=== PATIENT | female | born 1965 | race Hispanic/Latino ===

== ENCOUNTER 2017-08-17 13:47 | Outpatient (CLI) | payer BC, OTHER | END 2017-08-17 13:48 | disposition home or self-care (01) | LOC: BICMAMMO 13:47 | PROVIDERS: ATTEND Family Medicine | DX: N64.4 Mastodynia (principal); Z80.3 Family history of malignant neoplasm of breast | CPT/HCPCS: 77066; G0279 ==

== ENCOUNTER 2017-08-17 14:52 | Outpatient (CLI) | payer BC | END 2017-08-17 14:53 | disposition home or self-care (01) | LOC: BICRAD 14:52 | PROVIDERS: ATTEND Family Medicine | DX: M54.5 Low back pain (principal); M47.896 Other spondylosis, lumbar region; M43.16 Spondylolisthesis, lumbar region | CPT/HCPCS: 72100 ==

== ENCOUNTER 2018-07-11 09:37 | Emergency (ER) | payer BC ==
--- NOTE | 2018-07-11 10:36 | RAD ---
XR Chest Pa Lat STANDARD HISTORY: Dyspnea COMPARISON: 02/16/2017 FINDINGS: The heart size is normal. The lungs are well expanded without focal areas of consolidation, pneumothorax or pleural effusions. There are mild degenerative changes in the spine. IMPRESSION: No radiographic evidence of acute cardiopulmonary process.
[2018-07-11 12:33] LABS: #Basophils 0.1 thou/uL (0.0-0.2); #Eosinphils 0.4 thou/uL (0.0-0.7); #Lymphocytes 3.1 thou/uL (1.20-3.40); #Monocytes 0.7 thou/uL (0.11-0.59); #Neutrophils 6.2 thou/uL (1.40-6.50); %Basophils 0.7 % (0.0-1.0); %Eosinophils 3.9 % (0.0-10.0); %Lymphocytes 29.7 % (21.0-51.0); %Monocytes 6.7 % (0.0-10.0); %Neutrophils 58.9 % (42.0-75.0); Hemoglobin 13.2 g/dL (12.0-16.0); Mean Corpuscular HGB CONC 32.5 g/dL (32.0-36.0); Mean Corpuscular Hemoglobin 31.7 pg (27.0-31.0); Mean Corpuscular Volume 97.3 fL (78.0-98.0); Mean Platelet Volume 8.1 fL (7.4-10.4); Platelet Count 259 thou/uL (130-400); RBC Distribution Width 13.2 % (11.5-14.5); Red Blood Cell (RBC) Count 4.16 mill/uL (4.20-5.40); White Blood Cell (WBC) Count 10.5 thou/uL (4.8-10.8)
[2018-07-11] MEDS ORDERED: Albuterol Sulfate 2.5 mg/0.5 ml Neb ONE (12:35)
[2018-07-11 12:53] LABS: ALT (SGPT) 54 U/L (8-55); AST (SGOT) 65 U/L (5-34); Albumin 3.7 g/dL (3.5-5.0); Alkaline Phosphatase 124 U/L (40-150); Anion Gap 10 mmol/L (10-20); BUN (Urea Nitrogen) 7 mg/dL (9.8-20.1); Bilirubin, Total 1.3 mg/dL (0.2-1.2); Calc. Creatinine Clearance 0 mL/min (70-130); Calcium 9.3 mg/dL (7.8-10.44); Carbon Dioxide 31 mmol/L (22-29); Chloride 105 mmol/L (98-107); Estimated GFR-MDRD 81; Globulin 2.8 g/dL (2.4-3.5); Glucose 119 mg/dL (70-105); Potassium 4.2 mmol/L (3.5-5.1); Protein, Total 6.5 g/dL (6.0-8.3); Sodium 142 mmol/L (136-145)
[2018-07-11 15:38] LABS: Troponin I Less than 0.010 ng/mL (< 0.028)
== END 2018-07-11 16:28 | disposition home or self-care (01) ==
LOC: ERS 09:37
DX: J45.909 Unspecified asthma, uncomplicated (principal); F43.9 Reaction to severe stress, unspecified; F41.9 Anxiety disorder, unspecified; Z79.899 Other long term (current) drug therapy
CPT/HCPCS: 36415; 71046; 80053; 83880; 84484; 85025; 85379; 93005; 94640; J7611; J7620

== ENCOUNTER 2018-07-18 19:00 | Emergency (ER) | payer BC ==
[2018-07-18 21:11] LABS: #Basophils 0.2 thou/uL (0.0-0.2); #Eosinphils 0.2 thou/uL (0.0-0.7); #Lymphocytes 5.6 thou/uL (1.20-3.40); #Monocytes 1.2 thou/uL (0.11-0.59); #Neutrophils 6.8 thou/uL (1.40-6.50); %Basophils 1.2 % (0.0-1.0); %Eosinophils 1.7 % (0.0-10.0); %Lymphocytes 40.2 % (21.0-51.0); %Monocytes 8.6 % (0.0-10.0); %Neutrophils 48.3 % (42.0-75.0); Hemoglobin 12.7 g/dL (12.0-16.0); Mean Corpuscular HGB CONC 31.7 g/dL (32.0-36.0); Mean Corpuscular Hemoglobin 31.2 pg (27.0-31.0); Mean Corpuscular Volume 98.1 fL (78.0-98.0); Mean Platelet Volume 7.9 fL (7.4-10.4); Platelet Count 284 thou/uL (130-400); RBC Distribution Width 13.4 % (11.5-14.5); Red Blood Cell (RBC) Count 4.08 mill/uL (4.20-5.40)
[2018-07-18 21:31] LABS: ALT (SGPT) 63 U/L (8-55); AST (SGOT) 100 U/L (5-34); Albumin 3.9 g/dL (3.5-5.0); Alkaline Phosphatase 131 U/L (40-150); Anion Gap 12 mmol/L (10-20); BUN (Urea Nitrogen) 11 mg/dL (9.8-20.1); Bilirubin, Total 0.8 mg/dL (0.2-1.2); Calc. Creatinine Clearance 0 mL/min (70-130); Calcium 8.9 mg/dL (7.8-10.44); Carbon Dioxide 29 mmol/L (22-29); Chloride 104 mmol/L (98-107); Estimated GFR-MDRD 75; Globulin 3.2 g/dL (2.4-3.5); Glucose 104 mg/dL (70-105); Lipase 16 U/L (8-78); Magnesium 2.1 mg/dL (1.6-2.6); Potassium 3.8 mmol/L (3.5-5.1); Protein, Total 7.1 g/dL (6.0-8.3); Sodium 141 mmol/L (136-145)
== END 2018-07-18 21:59 | disposition home or self-care (01) ==
LOC: ERS 19:00
DX: R44.1 Visual hallucinations (principal); G47.00 Insomnia, unspecified; R06.02 Shortness of breath; R10.13 Epigastric pain; T50.905A Adverse effect of unspecified drugs, medicaments and biological substances, initial encounter; J45.909 Unspecified asthma, uncomplicated; F41.9 Anxiety disorder, unspecified; Z87.891 Personal history of nicotine dependence; Z79.899 Other long term (current) drug therapy; Z79.51 Long term (current) use of inhaled steroids
CPT/HCPCS: 36415; 80053; 83690; 83735; 85025; 93005

== ENCOUNTER 2019-02-24 19:14 | Observation (INO) | payer BC ==
[2019-02-24] MEDS ORDERED: Ondansetron PF 4 MG/2 ML Vial ONE (19:48)
[2019-02-24] MEDS ORDERED: Mag-Al 1200 mg/1200 mg/30 ML UDCUP ONE (19:56)
[2019-02-24] MEDS ORDERED: Lidocaine Viscous Sol 2% 15 ml UD Cup ONE (19:56)
[2019-02-24 20:00] LABS: #Lymphocytes 1.3 thou/uL (1.20-3.40); #Monocytes 0.3 thou/uL (0.11-0.59); #Neutrophils 7.1 thou/uL (1.40-6.50); %Basophils 0.5 % (0.0-1.0); %Eosinophils 0.3 % (0.0-10.0); %Lymphocytes 14.7 % (21.0-51.0); %Monocytes 3.4 % (0.0-10.0); Hemoglobin 16.1 g/dL (12.0-16.0); Mean Corpuscular HGB CONC 32.8 g/dL (32.0-36.0); Mean Corpuscular Hemoglobin 31.4 pg (27.0-31.0); Mean Corpuscular Volume 95.5 fL (78.0-98.0); Mean Platelet Volume 8.9 fL (7.4-10.4); Platelet Count 234 thou/uL (130-400); RBC Distribution Width 13.9 % (11.5-14.5); Red Blood Cell (RBC) Count 5.14 mill/uL (4.20-5.40); White Blood Cell (WBC) Count 8.8 thou/uL (4.8-10.8)
--- NOTE | 2019-02-24 20:16 | RAD ---
Portable frontal chest radiograph: 02/24/2019 COMPARISON: 07/11/2018 HISTORY: Nausea, vomiting, and diarrhea, chest pain FINDINGS: Lungs are clear. Heart and mediastinal contours appear within normal limits. IMPRESSION: No acute findings.
[2019-02-24 20:26] LABS: ALT (SGPT) 54 U/L (8-55); AST (SGOT) 68 U/L (5-34); Albumin 4.1 g/dL (3.5-5.0); Alkaline Phosphatase 134 U/L (40-110); Anion Gap 13 mmol/L (10-20); BUN (Urea Nitrogen) 10 mg/dL (9.8-20.1); Bilirubin, Total 1.8 mg/dL (0.2-1.2); Calc. Creatinine Clearance 0 mL/min (70-130); Calcium 9.4 mg/dL (7.8-10.44); Carbon Dioxide 26 mmol/L (22-29); Chloride 101 mmol/L (98-107); Estimated GFR-MDRD 69; Globulin 3.6 g/dL (2.4-3.5); Glucose 133 mg/dL (70-105); Lipase 9 U/L (8-78); Protein, Total 7.7 g/dL (6.0-8.3); Sodium 136 mmol/L (136-145)
[2019-02-24 20:48] LABS: CKMB 0.8 ng/mL (0-6.6)
[2019-02-24] MEDS ORDERED: Acetaminophen 500 MG TAB ONE (21:08)
[2019-02-24] MEDS ORDERED: Aspirin Chewable 81 MG TAB ONE (21:11)
[2019-02-24 22:49] LABS: Bacteria/HPF 2+ HPF (None Seen); Bilirubin Negative (Negative); Blood, Urine 1+ (Negative); Clarity Clear (Clear); Glucose, Urine (Dipstick) Normal (Negative); Leukocyte Negative Leu/uL (Negative); Mucous/LPF Rare LPF (<2+); Nitrite Negative (Negative); Protein, Urine (Dipstick) Negative (Neg-Trace); Squamous Epithelial 0-3 HPF (0-3); Urobilinogen Normal mg/dL (Less than 2)
[2019-02-25] MEDS ORDERED: Acetaminophen 325 MG TAB PO PRN (00:28)
[2019-02-25] MEDS ORDERED: Ondansetron PF 4 MG/2 ML Vial IVP PRN (00:28)
[2019-02-25] MEDS ORDERED: Guaifenesin DM 100-10/5 ML UDCUP PO PRN (00:28)
[2019-02-25] MEDS ORDERED: Acetaminophen/Codeine 30-300mg Tablet PO PRN (00:29)
--- NOTE | 2019-02-25 01:04 | HP ---
REASON FOR ADMISSION: Severe dehydration; gastroenteritis, likely viral; and chest pain. HISTORY OF PRESENTING ILLNESS: Patient gives history of developing nausea, vomiting, and diarrhea all of sudden from this morning. She ate spaghetti with ragu sauce and ice cream last night and yesterday afternoon she ate a cheeseburger from [email or web address] with fries. She has not been able to keep anything down from morning today. She has vomited nearly 10 times and has had 10 episodes of loose watery stool. No blood in it. Patient felt feverish. On arrival here, had a temperature of 101.3 degrees here. Patient states she works in a [employer] center and one of her coworkers had diarrhea yesterday. The patient developed chest pain around 3 p.m. in the retrosternal area, which lasted for 10 minutes with no radiation. She has had a PET stress test done on December 16, which was negative. No complaints of shortness of breath. PAST MEDICAL AND SURGICAL HISTORY: Obesity; history of asthma, which has been stable with no flare-ups; osteoarthritis; chronic pain; cholecystectomy; tubal ligation; and anxiety disorder. CURRENT MEDICATION: Tylenol No. 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 ALLERGIES: NO KNOWN DRUG ALLERGIES. PERSONAL HISTORY: Quit smoking 4 years ago. Does not abuse alcohol or drugs. FAMILY HISTORY: Mother at the age of 71. She had history of diabetes and hypertension. Father at the age of 72. He of prostate cancer and its complications. CODE STATUS: Full. Power of ip attorney is her daughter, Ms. Horvath. REVIEW OF SYSTEMS: CONSTITUTIONAL: Negative for weight loss or gain, ability to conduct usual activities. SKIN: Negative for rash, itching. EYES: Negative for double vision, pain. ENT/MOUTH: Negative for nose bleeding, neck stiffness, pain, tenderness. CARDIOVASCULAR: Negative for palpitations, dyspnea on exertion, orthopnea. RESPIRATORY: Negative for shortness of breath, wheezing, cough, hemoptysis, fever or night sweats. GASTROINTESTINAL: Negative for poor appetite, abdominal pain, heartburn, nausea , vomiting, constipation, or diarrhea. GENITOURINARY: Negative for urgency, frequency, dysuria, nocturia. MUSCULOSKELETAL: Negative for pain, swelling. NEUROLOGIC/PSYCHIATRIC: Negative for anxiety, depression. ALLERGY/IMMUNOLOGIC: Negative for skin rash, bleeding tendency. PHYSICAL EXAMINATION: GENERAL: Patient is a 53-year-old female, who is currently not in any acute distress. VITAL SIGNS: Blood pressure 136/90, pulse 110 per minute, respiratory rate 18 per minute, temperature was 101.3 degrees Fahrenheit, and saturating 96% on room air. NECK: Supple. No elevated JVD. HEENT: Eyes; extraocular muscles intact. Pupils reacting to light. Oral cavity, mucous membranes are dry. No exudates or congestion. CARDIOVASCULAR: S1, S2 heard. Regular rhythm. RESPIRATORY: Air entry 2+ bilateral. No rales. There is rhonchi plus. ABDOMEN: Soft. No tenderness or rigidity. Bowel sounds are heard. EXTREMITIES : Mild peripheral edema. No calf tenderness. VASCULAR: Peripheral pulses are 2+, bilateral. No ischemic ulcerations or gangrene. CENTRAL NERVOUS SYSTEM: No gross focal deficits noted. Patient is alert, awake , and oriented well. PSYCHIATRIC: Patient's mood is euthymic. No hallucinations or delusions. LABORATORY DATA: Influenza A and B antigens are negative. Chest x-ray done shows no acute findings. H and H 16 and 49, platelet count 234, white count of 8.8, MCV is 95 with 81% neutrophils. Electrolytes stable. BUN 10, creatinine 0.8, serum glucose 133, total bilirubin 1.8, AST 68, ALT 54, and alk phos 134. Troponin I 0.02, second set is normal. Albumin is 4.1. Lipase is 9. EKG done, shows sinus tach at 108 beats per minute. CLINICAL IMPRESSION AND PLAN: Patient will be under observation on the telemetry for severe gastroenteritis, likely viral, but patient has had a fever of 101 degrees with nearly 10 episodes of vomiting and diarrhea. She is still having diarrhea as we speak. We will obtain stool for cultures including Clostridium difficile. We will empirically place her on Cipro and Flagyl for now. Gentle hydration with normal saline at 100 mL/hour. The patient has had a recent PET scan stress test done in November, which was negative. We will also place her on albuterol nebulizer q.8 hours and aspirin 81 mg p.o. daily. No further workup for her heart will be done. We will obtain ultrasound of right upper quadrant to see if she has any evidence of choledocholithiasis. Patient has had prior cholecystectomy. She is clinically not tender in the right upper quadrant. We will keep her on clear liquid diet. If needed, Zofran and Phenergan will be given. Job ID: [id number] [facility]
[2019-02-25 01:23] LABS: HBSAg Index 0.16 S/CO (0-0.99); Hep B Surf Ag Non-Reactive S/CO (NonReactive)
[2019-02-25 01:24] LABS: Hep A IgM AB Non-Reactive (NonReactive)
[2019-02-25 01:25] LABS: HBCM Index 0.15 S/CO (0-0.79); Hepatitis B Core IgM Abs Non-Reactive (NonReactive)
[2019-02-25 01:26] LABS: Hep C IgG Ab Reflex HepC Qnt (NonReactive); Hep C Index 4.25 S/CO (0-0.79)
[2019-02-25 03:10] LABS: #Basophils 0.2 thou/uL (0.0-0.2); #Lymphocytes 2.6 thou/uL (1.20-3.40); #Monocytes 0.7 thou/uL (0.11-0.59); #Neutrophils 5.8 thou/uL (1.40-6.50); %Basophils 1.8 % (0.0-1.0); %Eosinophils 0.3 % (0.0-10.0); %Lymphocytes 27.5 % (21.0-51.0); %Monocytes 7.8 % (0.0-10.0); %Neutrophils 62.6 % (42.0-75.0); Hemoglobin 13.5 g/dL (12.0-16.0); Mean Corpuscular Hemoglobin 31.4 pg (27.0-31.0); Mean Corpuscular Volume 95.2 fL (78.0-98.0); Mean Platelet Volume 8.3 fL (7.4-10.4); Platelet Count 214 thou/uL (130-400); White Blood Cell (WBC) Count 9.3 thou/uL (4.8-10.8)
[2019-02-25 03:42] LABS: ALT (SGPT) 39 U/L (8-55); AST (SGOT) 48 U/L (5-34); Albumin 3.4 g/dL (3.5-5.0); Alkaline Phosphatase 102 U/L (40-110); Anion Gap 16 mmol/L (10-20); BUN (Urea Nitrogen) 10 mg/dL (9.8-20.1); Bilirubin, Total 1.5 mg/dL (0.2-1.2); Calc. Creatinine Clearance 0 mL/min (70-130); Calcium 8.4 mg/dL (7.8-10.44); Carbon Dioxide 20 mmol/L (22-29); Chloride 108 mmol/L (98-107); Estimated GFR-MDRD 80; Glucose 98 mg/dL (70-105); Potassium 3.7 mmol/L (3.5-5.1); Protein, Total 6.4 g/dL (6.0-8.3); Sodium 140 mmol/L (136-145)
[2019-02-25] MEDS: Sodium Chloride 0.9% 1,000 ML IV SCH ×2 (06:22→08:44)
[2019-02-25 08:31] VITALS: BMI 56.6
[2019-02-25] MEDS: metroNIDAZOLE 500 MG in Premix Bag 1 BAG IVPB SCH ×2 (08:44→15:40)
[2019-02-25] MEDS ORDERED: Enoxaparin Sodium 40 MG/0.4 ML SYRINGE SC SCH (09:00)
[2019-02-25] MEDS ORDERED: Cetirizine HCl 10 MG TAB PO SCH (09:00)
[2019-02-25] MEDS ORDERED: Aspirin Chewable 81 MG TAB PO SCH (09:00)
[2019-02-25] MEDS ORDERED: Loratadine 10 MG TAB PO SCH (09:00)
[2019-02-25] MEDS ORDERED: Famotidine/PF 20 mg/2ml Vial SLOW IVP SCH (09:00)
[2019-02-25] MEDS: Albuterol Sulfate 1.25 MG/3 ML NEB NEB SCH ×2 (10:23→13:43)
--- NOTE | 2019-02-25 12:04 | ULT ---
ULTRASOUND GALLBLADDER UPPER QUADRANT: HISTORY: Evaluate for cholelithiasis, prior cholecystectomy. COMPARISON: None. FINDINGS: Mild diffuse increased hepatic echotexture. Pancreas is poorly seen as well as the aorta and IVC. C ommon bile duct is normal measuring 3 mm. The portal vein is patent with antegrade flow. There is a nodular contour of the liver. No definite mass is appreciated, given the extensive coarsened echotexture. Liver measures 18.7 cm in length. The right kidney measures 10.2 x 4.7 x 6.3 cm without mass, hydronephrosis, or abnormal calcification s. IMPRESSION: 1. No evidence for choledocholithiasis. No intrahepatic or extrahepatic biliary dilatation. 2. Prior cholecystectomy. 3. Abnormal coarsened hepatic echotexture with nodular contour suggesting cirrhosis. POS: HOME
[2019-02-25 15:40] VITALS: TEMP 98.5
[2019-02-25] MEDS ORDERED: Cipro 250 MG TAB PO SCH (19:30)
[2019-02-25] MEDS ORDERED: metroNIDAZOLE 500 MG TAB PO SCH (19:30)
[2019-02-25 20:28] VITALS: BP 127/74
[2019-02-27 13:10] LABS: Hep C PCR-Quant HCV Not Detected IU/mL (.)
== END 2019-02-25 20:39 | disposition home or self-care (01) ==
LOC: ERS 19:14 → ERHOLD 22:39 → 2SW 02-25 08:13
PROVIDERS: ADMIT Internal Medicine; ATTEND Internal Medicine
DX: K52.9 Noninfective gastroenteritis and colitis, unspecified (principal); E86.0 Dehydration; R07.2 Precordial pain; J45.909 Unspecified asthma, uncomplicated; M19.90 Unspecified osteoarthritis, unspecified site; M79.7 Fibromyalgia; G89.29 Other chronic pain; F41.9 Anxiety disorder, unspecified; E66.9 Obesity, unspecified; Z68.43 Body mass index [BMI] 50.0-59.9, adult; Z87.891 Personal history of nicotine dependence
CPT/HCPCS: 36415; 71045; 76705; 80053; 80074; 81003; 81015; 82553; 83690; 84484; 85025; 87040; 87045; 87046; 87086; 87324; 87427; 87449; 87522; 87804; 93005; 94640; 96361; 96365; 96374; 96375; 96376; G0378; J0744; J2405; S0028

== ENCOUNTER 2019-04-26 10:00 | Emergency (ER) | payer BC ==
[2019-04-26] MEDS ORDERED: Ketorolac Tromethamine 30 MG/ML VIAL ONE (10:31)
== END 2019-04-26 10:51 | disposition home or self-care (01) ==
LOC: ERS 10:00
DX: G89.29 Other chronic pain (principal); M54.5 Low back pain; M19.90 Unspecified osteoarthritis, unspecified site; J45.909 Unspecified asthma, uncomplicated; F41.9 Anxiety disorder, unspecified; Z87.891 Personal history of nicotine dependence
CPT/HCPCS: 96372; 99283; J1885

== ENCOUNTER 2019-09-18 12:12 | Emergency (ER) | payer BC ==
[2019-09-18 12:58] LABS: #Basophils 0.1 thou/uL (0.0-0.2); #Eosinphils 0.3 thou/uL (0.0-0.7); #Lymphocytes 4.5 thou/uL (1.20-3.40); #Monocytes 1.2 thou/uL (0.11-0.59); #Neutrophils 6.7 thou/uL (1.40-6.50); %Basophils 0.9 % (0.0-1.0); %Eosinophils 2.2 % (0.0-10.0); %Lymphocytes 35.2 % (21.0-51.0); %Monocytes 9.4 % (0.0-10.0); %Neutrophils 52.3 % (42.0-75.0); Hemoglobin 14.8 g/dL (12.0-16.0); Mean Corpuscular HGB CONC 32.1 g/dL (32.0-36.0); Mean Corpuscular Hemoglobin 31.5 pg (27.0-31.0); Mean Platelet Volume 8.2 fL (7.4-10.4); Platelet Count 247 thou/uL (130-400); RBC Distribution Width 13.4 % (11.5-14.5); White Blood Cell (WBC) Count 12.9 thou/uL (4.8-10.8)
[2019-09-18 13:09] LABS: ALT (SGPT) 43 U/L (8-55); AST (SGOT) 49 U/L (5-34); Albumin 3.8 g/dL (3.5-5.0); Alkaline Phosphatase 137 U/L (40-110); Anion Gap 12 mmol/L (10-20); BUN (Urea Nitrogen) 13 mg/dL (9.8-20.1); Bilirubin, Total 1.1 mg/dL (0.2-1.2); Calc. Creatinine Clearance 0 mL/min (70-130); Calcium 8.8 mg/dL (7.8-10.44); Carbon Dioxide 26 mmol/L (22-29); Chloride 105 mmol/L (98-107); Estimated GFR-MDRD 79; Globulin 3.4 g/dL (2.4-3.5); Glucose 83 mg/dL (70-105); Potassium 4.1 mmol/L (3.5-5.1); Protein, Total 7.2 g/dL (6.0-8.3); Sodium 139 mmol/L (136-145)
[2019-09-18] MEDS ORDERED: Acetaminophen 500 MG TAB ONE (13:32)
[2019-09-18] MEDS ORDERED: Ondansetron PF 4 MG/2 ML Vial ONE (13:32)
--- NOTE | 2019-09-18 13:32 | CT ---
CT BRAIN WITHOUT CONTRAST: HISTORY: Headache, near syncope, nausea and dizziness FINDINGS: No evidence of acute infarct, hemorrhage, midline shift or abnormal extra-axial fluid collections is seen. The ventricular size is appropriate and the basilar cisterns are patent. The bony calvarium is intact. The mastoid air cells are well aerated. There is a tiny amount of fluid in the sphenoid si nuses. IMPRESSION: No CT evidence of acute intracranial process.
== END 2019-09-18 14:21 | disposition home or self-care (01) ==
LOC: ERS 12:12
DX: R42 Dizziness and giddiness (principal); R51 Headache; R79.89 Other specified abnormal findings of blood chemistry; R03.0 Elevated blood-pressure reading, without diagnosis of hypertension; M79.7 Fibromyalgia; J45.909 Unspecified asthma, uncomplicated; M19.90 Unspecified osteoarthritis, unspecified site; F41.9 Anxiety disorder, unspecified; F32.9 Major depressive disorder, single episode, unspecified; Z87.891 Personal history of nicotine dependence; Z79.899 Other long term (current) drug therapy
CPT/HCPCS: 36415; 70450; 80053; 82550; 84484; 85025; 93005; 94760; 96374; J2405

== ENCOUNTER 2019-12-28 15:19 | Outpatient (CLI) | payer BC ==
--- NOTE | 2019-12-28 15:51 | MMO ---
Bilateral MAMMO Bilat Screen [facility]. CLINICAL HISTORY: Patient is 54 years old and is seen for screening. The patient has the following family history of breast cancer: cousin female, malignant (generic). The patient has no personal history of cancer. VIEWS: The views performed were: bilateral craniocaudal; bilateral craniocaudal with tomosynthesis; bilateral mediolateral oblique; and bilateral mediolateral oblique with tomosynthesis. FILMS COMPARED: The present examination has been compared to prior imaging studies performed at [facility] on 01/12/2011, 04/22/2016 and 08/17/2017, and at [facility] on 09/09/2004. This study has been interpreted with the assistance of computer-aided detection. MAMMOGRAM FINDINGS: The breasts are almost entirely fat. There are no suspicious masses, suspicious calcifications, or new areas of architectural distortion. IMPRESSION: THERE IS NO MAMMOGRAPHIC EVIDENCE OF MALIGNANCY. A ROUTINE FOLLOW-UP MAMMOGRAM IN 1 YEAR IS RECOMMENDED. THE RESULTS OF THIS EXAM WERE SENT TO THE PATIENT. ACR BI-RADS Category 1 - Negative MAMMOGRAPHY NOTE: 1. A negative mammogram report should not delay a biopsy if a dominant of clinically suspicious mass is present. 2. Approximately 10% to 15% of breast cancers are not detected by mammography. 3. Adenosis and dense breasts may obscure an underlying neoplasm. Reported by: ROSIE CANDELARIO MD Electonically Signed: [id number]
== END 2019-12-28 15:20 | disposition home or self-care (01) ==
LOC: BICMAMMO 15:19
PROVIDERS: ATTEND Family Medicine
DX: Z12.31 Encounter for screening mammogram for malignant neoplasm of breast (principal); Z80.3 Family history of malignant neoplasm of breast
CPT/HCPCS: 77063; 77067

== ENCOUNTER 2020-02-12 11:35 | Emergency (ER) | payer BC ==
[~2020-02-12 11:35] MED LIST: Iopamidol-370 76% 500 ML 1 ML ONE
[2020-02-12 12:18] LABS: #Basophils 0.1 thou/uL (0.0-0.2); #Eosinphils 0.5 thou/uL (0.0-0.7); #Lymphocytes 4.1 thou/uL (1.20-3.40); #Monocytes 1.1 thou/uL (0.11-0.59); #Neutrophils 5.2 thou/uL (1.40-6.50); %Basophils 1.1 % (0.0-1.0); %Eosinophils 4.9 % (0.0-10.0); %Lymphocytes 36.9 % (21.0-51.0); %Monocytes 9.7 % (0.0-10.0); %Neutrophils 47.4 % (42.0-75.0); Hemoglobin 14.2 g/dL (12.0-16.0); Mean Corpuscular HGB CONC 32.7 g/dL (32.0-36.0); Mean Corpuscular Hemoglobin 31.7 pg (27.0-31.0); Mean Corpuscular Volume 96.8 fL (78.0-98.0); Platelet Count 280 thou/uL (130-400); RBC Distribution Width 12.4 % (11.5-14.5); Red Blood Cell (RBC) Count 4.48 mill/uL (4.20-5.40)
--- NOTE | 2020-02-12 12:26 | RAD ---
XR Chest 1 View Portable History: Pneumonia. Dyspnea Comparison: Radiograph February 24, 2019 Findings: Heart size mildly enlarged along with the pulmonary arteries. No pneumothorax. No effusion. No confluent airspace consolidation. Impression: No acute intrathoracic abnormality. Cardiomegaly and pulmonary hypertension.
[2020-02-12] MEDS ORDERED: Albuterol 200 PUFF (6.7GM INHALER) ONE (12:38)
[2020-02-12 12:44] LABS: ALT (SGPT) 67 U/L (8-55); AST (SGOT) 107 U/L (5-34); Albumin 3.5 g/dL (3.5-5.0); Alkaline Phosphatase 121 U/L (40-110); Anion Gap 12 mmol/L (10-20); BUN (Urea Nitrogen) 8 mg/dL (9.8-20.1); Calc. Creatinine Clearance 0 mL/min (70-130); Calcium 8.7 mg/dL (7.8-10.44); Carbon Dioxide 27 mmol/L (22-29); Chloride 107 mmol/L (98-107); Globulin 2.9 g/dL (2.4-3.5); Glucose 111 mg/dL (70-105); Potassium 4.2 mmol/L (3.5-5.1); Protein, Total 6.4 g/dL (6.0-8.3); Sodium 142 mmol/L (136-145)
--- NOTE | 2020-02-12 14:25 | CT ---
CT arteriogram chest with IV contrast and 3-D imaging HISTORY: Recent COVID pneumonia. Worsening dyspnea. FINDINGS: There is good contrast opacification of the pulmonary arteries and thoracic aorta with bovi ne origin of the great vessels at the aortic arch. No pleural fluid, pneumothorax, or mediastinal adenopathy. Very subtle peripheral patchy interstitial infiltrates are present the posterior aspect of each upper lobe. Mild linear scarring at the left lateral lung base. Within the partially visualized upper abdomen, metallic clips are present in the gallbladder fossa. IMPRESSION : No evidence of pulmonary embolus. Subtle bilateral parenchymal infiltrate/scarring, consistent with mild residual infiltrate from recen t pneumonitis.
--- NOTE | 2020-02-16 14:42 | EKG ---
Test Reason : Blood Pressure : / mmHG Vent. Rate : 068 BPM Atrial Rate : 068 BPM P-R Int : 120 ms QRS Dur : 080 ms QT Int : 376 ms P-R-T Axes : 072 051 047 degrees QTc Int : 399 ms Normal sinus rhythm Normal ECG Confirmed by ABDIRASHID CHAMPAGNE ([id number]), sponge maker SURENDRA LI ([id number] on 02/16/2020 2:41:57 PM Referred By: Confirmed By:ABDIRASHID CHAMPAGNE
== END 2020-02-12 15:46 | disposition home or self-care (01) ==
LOC: ERS 11:35
DX: U07.1 COVID-19 (principal); J12.89 Other viral pneumonia; M79.7 Fibromyalgia; M19.90 Unspecified osteoarthritis, unspecified site; Z87.891 Personal history of nicotine dependence
CPT/HCPCS: 71045; 71275; 80053; 83880; 84484; 85025; 85379; 93005; 94664; Q9967

== ENCOUNTER 2020-03-16 12:21 | Emergency (ER) | payer BC ==
[2020-03-16 12:51] LABS: #Basophils 0.1 thou/uL (0.0-0.2); #Eosinphils 0.7 thou/uL (0.0-0.7); #Lymphocytes 4.7 thou/uL (1.20-3.40); #Monocytes 0.9 thou/uL (0.11-0.59); #Neutrophils 3.7 thou/uL (1.40-6.50); %Basophils 1.3 % (0.0-1.0); %Eosinophils 6.5 % (0.0-10.0); %Lymphocytes 46.6 % (21.0-51.0); %Monocytes 8.7 % (0.0-10.0); %Neutrophils 36.9 % (42.0-75.0); Hemoglobin 14.3 g/dL (12.0-16.0); Mean Corpuscular HGB CONC 32.7 g/dL (32.0-36.0); Mean Corpuscular Hemoglobin 31.6 pg (27.0-31.0); Mean Corpuscular Volume 96.7 fL (78.0-98.0); Mean Platelet Volume 8.4 fL (7.4-10.4); Platelet Count 231 thou/uL (130-400); RBC Distribution Width 13.3 % (11.5-14.5); Red Blood Cell (RBC) Count 4.53 mill/uL (4.20-5.40); White Blood Cell (WBC) Count 10.1 thou/uL (4.8-10.8)
--- NOTE | 2020-03-16 13:07 | RAD ---
EXAM: CHEST ONE VIEW HISTORY: Intermittent chest pain. History of Covid in December. COMPARISON: 02/12/2020 FINDINGS: Cardiac silhouette remains enlarged. Pulmonary vasculature is within normal limits. Minimal linear de nsities are seen in the left midlung zone also seen on prior study which may related to minimal scarring. Lungs are otherwise clear. There is no consolidation or pleural fluid seen. No interval tita nge from prior study. IMPRESSION: Stable chest with evidence of cardiomegaly. No acute cardiopulmonary process.
[2020-03-16 13:13] LABS: ALT (SGPT) 60 U/L (8-55); AST (SGOT) 99 U/L (5-34); Albumin 3.7 g/dL (3.5-5.0); Alkaline Phosphatase 106 U/L (40-110); Anion Gap 14 mmol/L (10-20); BUN (Urea Nitrogen) 9 mg/dL (9.8-20.1); Bilirubin, Total 1.5 mg/dL (0.2-1.2); Calc. Creatinine Clearance 0 mL/min (70-130); Calcium 8.7 mg/dL (7.8-10.44); Carbon Dioxide 27 mmol/L (22-29); Chloride 105 mmol/L (98-107); Globulin 3.4 g/dL (2.4-3.5); Glucose 90 mg/dL (70-105); Potassium 4.3 mmol/L (3.5-5.1); Protein, Total 7.1 g/dL (6.0-8.3); Sodium 142 mmol/L (136-145)
[2020-03-16] MEDS ORDERED: Ketorolac Tromethamine 30 MG/ML VIAL ONE (13:53)
[2020-03-16] MEDS ORDERED: Ondansetron PF 4 MG/2 ML Vial ONE (13:53)
[2020-03-16 15:09] LABS: Troponin I Less than 0.010 ng/mL (< 0.028)
--- NOTE | 2020-04-05 19:11 | EKG ---
Test Reason : EMERGENCY EXAM Blood Pressure : / mmHG Vent. Rate : 081 BPM Atrial Rate : 081 BPM P-R Int : 128 ms QRS Dur : 084 ms QT Int : 370 ms P-R-T Axes : 071 048 039 degrees QTc Int : 429 ms Normal sinus rhythm Normal ECG Confirmed by MARINE TYLER DO ([id number]), proposal editor SURENDRA LI ([id number]) on 04/05/2020 7:11:09 PM Referred By: Confirmed By:MARINE TYLER DO
== END 2020-03-16 15:40 | disposition home or self-care (01) ==
LOC: ERS 12:21
DX: R09.1 Pleurisy (principal); M79.7 Fibromyalgia; M19.90 Unspecified osteoarthritis, unspecified site; J45.909 Unspecified asthma, uncomplicated; Z87.891 Personal history of nicotine dependence
CPT/HCPCS: 36415; 71045; 80053; 83880; 84484; 85025; 93005; 96374; 96375; J1885; J2405

== ENCOUNTER 2020-04-23 14:04 | Emergency (ER) | payer BC ==
--- NOTE | 2020-04-23 14:28 | RAD ---
EXAM: Chest one view: HISTORY: Intermittent chest soreness and pain since having Covid in December, becoming worse COMPARISON: 03/16/2020 FINDINGS: Poor inspiration Heart size: Within normal limits. Lungs: Horizontal linear parenchymal change in the left midlung zone more prominent than on prior hilario dy. No evidence for confluent lobar pneumonia, significant pleural effusion, acute edema, or pneumothorax , or other significant acute process. IMPRESSION: New focal linear area of horizontal density in the left midlung zone, possibly subsegmental atelectas is or mild pneumonitis. Suggest a short-term follow-up for clearing or stability.
[2020-04-23 15:13] LABS: #Basophils 0.1 thou/uL (0.0-0.2); #Eosinphils 0.8 thou/uL (0.0-0.7); #Lymphocytes 3.9 thou/uL (1.20-3.40); #Monocytes 1.1 thou/uL (0.11-0.59); #Neutrophils 3.3 thou/uL (1.40-6.50); %Basophils 1.5 % (0.0-1.0); %Eosinophils 8.2 % (0.0-10.0); %Lymphocytes 42.5 % (21.0-51.0); %Monocytes 11.6 % (0.0-10.0); %Neutrophils 36.1 % (42.0-75.0); Hemoglobin 13.6 g/dL (12.0-16.0); Mean Corpuscular HGB CONC 32.6 g/dL (32.0-36.0); Mean Corpuscular Hemoglobin 31.6 pg (27.0-31.0); Mean Corpuscular Volume 96.8 fL (78.0-98.0); Platelet Count 229 thou/uL (130-400); RBC Distribution Width 13.4 % (11.5-14.5); Red Blood Cell (RBC) Count 4.29 mill/uL (4.20-5.40); White Blood Cell (WBC) Count 9.3 thou/uL (4.8-10.8)
[2020-04-23 15:38] LABS: ALT (SGPT) 43 U/L (8-55); AST (SGOT) 80 U/L (5-34); Albumin 3.5 g/dL (3.5-5.0); Alkaline Phosphatase 103 U/L (40-110); Anion Gap 9 mmol/L (10-20); BUN (Urea Nitrogen) 10 mg/dL (9.8-20.1); Calc. Creatinine Clearance 0 mL/min (70-130); Calcium 8.8 mg/dL (7.8-10.44); Carbon Dioxide 32 mmol/L (22-29); Chloride 104 mmol/L (98-107); Globulin 3.3 g/dL (2.4-3.5); Glucose 91 mg/dL (70-105); Lipase 12 U/L (8-78); Potassium 3.8 mmol/L (3.5-5.1); Protein, Total 6.8 g/dL (6.0-8.3); Sodium 141 mmol/L (136-145)
[2020-04-23] MEDS ORDERED: Ketorolac Tromethamine 30 MG/ML VIAL ONE (15:42)
== END 2020-04-23 17:12 | disposition home or self-care (01) ==
LOC: ERS 14:04
DX: J18.9 Pneumonia, unspecified organism (principal); J45.909 Unspecified asthma, uncomplicated; M79.7 Fibromyalgia; M19.90 Unspecified osteoarthritis, unspecified site; Z87.891 Personal history of nicotine dependence; Z86.16 Personal history of COVID-19; Z79.899 Other long term (current) drug therapy
CPT/HCPCS: 36415; 71045; 80053; 83690; 84484; 85025; 93005; 94760; 96372; J1885

== ENCOUNTER 2020-05-05 09:22 | Outpatient (CLI) | payer BC | END 2020-05-05 09:23 | disposition home or self-care (01) | LOC: BICRAD 09:22 | PROVIDERS: ATTEND Internal Medicine Pulmonary Disease | DX: R06.00 Dyspnea, unspecified (principal) | CPT/HCPCS: 71046 ==

== ENCOUNTER 2020-05-08 10:20 | Emergency (ER) | payer BC ==
[2020-05-08] MEDS ORDERED: HYDROcodone/Acetaminophen 10/325 mg Tablet ONE (13:37)
== END 2020-05-08 14:48 | disposition home or self-care (01) ==
LOC: ERS 10:20
DX: I87.2 Venous insufficiency (chronic) (peripheral) (principal); M79.7 Fibromyalgia; M19.90 Unspecified osteoarthritis, unspecified site; J45.909 Unspecified asthma, uncomplicated; Z87.891 Personal history of nicotine dependence; Z79.899 Other long term (current) drug therapy
CPT/HCPCS: 93005; 93970

== ENCOUNTER 2020-08-25 16:58 | Emergency (ER) | payer BC ==
[2020-08-25 17:42] LABS: #Basophils 0.1 thou/uL (0.0-0.2); #Eosinphils 0.6 thou/uL (0.0-0.7); #Lymphocytes 4.3 thou/uL (1.20-3.40); #Monocytes 0.8 thou/uL (0.11-0.59); #Neutrophils 5.7 thou/uL (1.40-6.50); %Basophils 1.1 % (0.0-1.0); %Eosinophils 5.5 % (0.0-10.0); %Lymphocytes 37.3 % (21.0-51.0); %Neutrophils 49.1 % (42.0-75.0); Hemoglobin 14.4 g/dL (12.0-16.0); Mean Corpuscular HGB CONC 33.9 g/dL (32.0-36.0); Mean Corpuscular Hemoglobin 32.8 pg (27.0-31.0); Mean Corpuscular Volume 96.6 fL (78.0-98.0); Mean Platelet Volume 8.3 fL (7.4-10.4); Platelet Count 232 thou/uL (130-400); RBC Distribution Width 13.6 % (11.5-14.5); Red Blood Cell (RBC) Count 4.39 mill/uL (4.20-5.40); White Blood Cell (WBC) Count 11.6 thou/uL (4.8-10.8)
[2020-08-25 18:03] LABS: ALT (SGPT) 39 U/L (8-55); AST (SGOT) 59 U/L (5-34); Albumin 3.7 g/dL (3.5-5.0); Alkaline Phosphatase 137 U/L (40-110); Anion Gap 15 mmol/L (10-20); BUN (Urea Nitrogen) 13 mg/dL (9.8-20.1); Bilirubin, Total 1.2 mg/dL (0.2-1.2); Calc. Creatinine Clearance 0 mL/min (70-130); Calcium 9.3 mg/dL (7.8-10.44); Carbon Dioxide 28 mmol/L (22-29); Chloride 101 mmol/L (98-107); Globulin 3.6 g/dL (2.4-3.5); Glucose 126 mg/dL (70-105); Potassium 3.7 mmol/L (3.5-5.1); Protein, Total 7.3 g/dL (6.0-8.3); Sodium 140 mmol/L (136-145)
[2020-08-25 20:26] LABS: Bilirubin Negative (Negative); Blood, Urine Negative (Negative); Glucose, Urine (Dipstick) Negative (Negative); Ketone, Urine Negative (Negative); Leukocyte Trace (Negative); Nitrite Negative (Negative); Protein, Urine (Dipstick) Negative (Neg-Trace)
[2020-08-25 20:34] LABS: Clarity Hazy (Clear)
[2020-08-25 20:37] LABS: RBC/HPF 0-3 HPF (0-3)
[2020-08-25 20:38] LABS: Squamous Epithelial 0-3 HPF (0-3); WBC/HPF 0-3 HPF (0-3)
[2020-08-25 20:39] LABS: Bacteria/HPF 1+ HPF (None Seen)
== END 2020-08-25 20:20 | disposition home or self-care (01) ==
LOC: ERS 16:58
DX: J06.9 Acute upper respiratory infection, unspecified (principal); M19.90 Unspecified osteoarthritis, unspecified site; M79.7 Fibromyalgia; J45.909 Unspecified asthma, uncomplicated; Z87.891 Personal history of nicotine dependence
CPT/HCPCS: 36415; 71045; 80053; 81003; 81015; 84484; 85025; 93005; 94760

== ENCOUNTER 2020-09-06 15:32 | Emergency (ER) | payer OTHER, BC ==
[2020-09-06] MEDS ORDERED: Fentanyl 100 MCG/2 ML VIAL ONE ×2 (16:09→17:48)
[2020-09-06 17:11] LABS: #Basophils 0.1 thou/uL (0.0-0.2); #Eosinphils 0.1 thou/uL (0.0-0.7); #Lymphocytes 1.9 thou/uL (1.20-3.40); #Monocytes 0.7 thou/uL (0.11-0.59); #Neutrophils 10.4 thou/uL (1.40-6.50); %Basophils 0.6 % (0.0-1.0); %Lymphocytes 14.6 % (21.0-51.0); %Monocytes 5.5 % (0.0-10.0); %Neutrophils 78.2 % (42.0-75.0); Hemoglobin 14.2 g/dL (12.0-16.0); Mean Corpuscular HGB CONC 32.5 g/dL (32.0-36.0); Mean Corpuscular Hemoglobin 32.1 pg (27.0-31.0); Mean Corpuscular Volume 98.8 fL (78.0-98.0); Mean Platelet Volume 8.3 fL (7.4-10.4); Platelet Count 221 thou/uL (130-400); RBC Distribution Width 13.3 % (11.5-14.5); Red Blood Cell (RBC) Count 4.41 mill/uL (4.20-5.40); White Blood Cell (WBC) Count 13.3 thou/uL (4.8-10.8)
[2020-09-06 17:33] LABS: ALT (SGPT) 38 U/L (8-55); AST (SGOT) 58 U/L (5-34); Albumin 3.6 g/dL (3.5-5.0); Alkaline Phosphatase 117 U/L (40-110); Anion Gap 15 mmol/L (10-20); BUN (Urea Nitrogen) 13 mg/dL (9.8-20.1); Bilirubin, Total 1.8 mg/dL (0.2-1.2); Calc. Creatinine Clearance 0 mL/min (70-130); Calcium 9.2 mg/dL (7.8-10.44); Carbon Dioxide 26 mmol/L (22-29); Chloride 101 mmol/L (98-107); Globulin 2.7 g/dL (2.4-3.5); Glucose 113 mg/dL (70-105); Lipase 6 U/L (8-78); Potassium 4.4 mmol/L (3.5-5.1); Protein, Total 6.3 g/dL (6.0-8.3); Sodium 138 mmol/L (136-145)
== END 2020-09-06 18:41 | disposition home or self-care (01) ==
LOC: ERS 15:32
DX: S62.101B Fracture of unspecified carpal bone, right wrist, initial encounter for open fracture (principal); Z87.891 Personal history of nicotine dependence; V89.2XXA Person injured in unspecified motor-vehicle accident, traffic, initial encounter
CPT/HCPCS: 36415; 70450; 70498; 71260; 72125; 74177; 80053; 83690; 84484; 85025; 93005; 96374; 96376; J3010; Q9967

== ENCOUNTER 2020-10-23 09:27 | Outpatient (CLI) | payer BC | END 2020-10-23 09:28 | disposition home or self-care (01) | LOC: BICRAD 09:27 | PROVIDERS: ATTEND Nurse Practitioner Family | DX: M43.16 Spondylolisthesis, lumbar region (principal); M47.816 Spondylosis without myelopathy or radiculopathy, lumbar region | CPT/HCPCS: 72110 ==

== ENCOUNTER 2020-11-12 11:29 | Outpatient (CLI) | payer BC | END 2020-11-12 11:30 | disposition home or self-care (01) | LOC: BICRAD 11:29 | PROVIDERS: ATTEND Family Medicine | DX: M79.671 Pain in right foot (principal) ==

== ENCOUNTER 2020-12-29 08:06 | Outpatient (CLI) | payer BC | END 2020-12-29 08:07 | disposition home or self-care (01) | LOC: BICMAMMO 08:06 | PROVIDERS: ATTEND Family Medicine | DX: Z12.31 Encounter for screening mammogram for malignant neoplasm of breast (principal); N64.89 Other specified disorders of breast; Z80.3 Family history of malignant neoplasm of breast | CPT/HCPCS: 77063; 77067; G0279 ==

== ENCOUNTER 2021-04-15 15:31 | Outpatient (CLI) | payer BC | END 2021-04-15 15:32 | disposition home or self-care (01) | LOC: BICRAD 15:31 | PROVIDERS: ATTEND Family Medicine | DX: J40 Bronchitis, not specified as acute or chronic (principal) | CPT/HCPCS: 71046 ==

== ENCOUNTER 2021-09-07 12:09 | Outpatient (CLI) | payer BC | END 2021-09-07 12:10 | disposition home or self-care (01) | LOC: BICRAD 12:09 | PROVIDERS: ATTEND Family Medicine | DX: J40 Bronchitis, not specified as acute or chronic (principal) | CPT/HCPCS: 71046 ==

== ENCOUNTER 2022-01-01 12:30 | Outpatient (CLI) | payer BC | END 2022-01-01 12:31 | disposition home or self-care (01) | LOC: BICRAD 12:30 | PROVIDERS: ATTEND Family Medicine | DX: M54.50 Low back pain, unspecified (principal); M25.552 Pain in left hip; M47.816 Spondylosis without myelopathy or radiculopathy, lumbar region | CPT/HCPCS: 72100; 72170 ==

== ENCOUNTER 2023-01-04 15:07 | Outpatient (CLI) | payer BC | END 2023-01-04 15:08 | disposition home or self-care (01) | LOC: BICMAMMO 15:07 | PROVIDERS: ATTEND Family Medicine | DX: N63.10 Unspecified lump in the right breast, unspecified quadrant (principal) | CPT/HCPCS: 77066; G0279 ==

== ENCOUNTER 2023-02-06 10:07 | Emergency (ER) | payer BC ==
[2023-02-06] MEDS ORDERED: Ipratropium/Albuterol 3 ML NEB ONE (11:43)
[2023-02-06 11:44] LABS: SARS-CoV-2 NAA Rapid Test Not Detected (NotDetected)
[2023-02-06 11:54] LABS: #Basophils 0.1 thou/uL (0.0-0.2); #Eosinphils 0.1 thou/uL (0.0-0.7); #Monocytes 0.6 thou/uL (0.11-0.59); #Neutrophils 6.8 thou/uL (1.40-6.50); %Basophils 0.6 % (0.0-1.0); %Eosinophils 1.1 % (0.0-10.0); %Lymphocytes 14.8 % (21.0-51.0); %Monocytes 7.1 % (0.0-10.0); %Neutrophils 76.1 % (42.0-75.0); Hematocrit 46.6 % (36.0-47.0); Hemoglobin 15.1 g/dL (12.0-16.0); Mean Corpuscular HGB CONC 32.4 g/dL (32.0-36.0); Mean Corpuscular Hemoglobin 30.9 pg (27.0-31.0); Mean Corpuscular Volume 95.5 fl (78.0-98.0); Mean Platelet Volume 10.8 fL (7.4-10.4); Platelet Count 225 10x3/uL (130-400); RBC Distribution Width 13.7 % (11.5-14.5); Red Blood Cell (RBC) Count 4.88 mill/uL (4.20-5.40); White Blood Cell (WBC) Count 8.9 10x3/uL (4.8-10.8)
[2023-02-06 12:12] LABS: ALT (SGPT) 25 U/L (8-55); AST (SGOT) 34 U/L (5-34); Albumin 3.9 g/dL (3.5-5.0); Alkaline Phosphatase 99 U/L (40-110); Anion Gap 14 mmol/L (10-20); BUN (Urea Nitrogen) 16 mg/dL (9.8-20.1); Bilirubin, Total 1.1 mg/dL (0.2-1.2); Calc. Creatinine Clearance 0 mL/min (70-130); Calcium 9.7 mg/dL (7.8-10.44); Carbon Dioxide 26 mmol/L (22-29); Chloride 104 mmol/L (98-107); Estimated GFR 85; Globulin 3.3 g/dL (2.4-3.5); Glucose 114 mg/dL (70-105); Magnesium 1.8 mg/dL (1.6-2.6); Potassium 4.1 mmol/L (3.5-5.1); Protein, Total 7.2 g/dL (6.0-8.3); Sodium 140 mmol/L (136-145)
[2023-02-06 12:16] LABS: Troponin I Less than 0.010 ng/mL (< 0.028)
== END 2023-02-06 13:17 | disposition home or self-care (01) ==
LOC: ERS 10:07
DX: J44.1 Chronic obstructive pulmonary disease with (acute) exacerbation (principal); Z20.822 Contact with and (suspected) exposure to COVID-19; Z87.891 Personal history of nicotine dependence
CPT/HCPCS: 36415; 71046; 80053; 83735; 83880; 84484; 85025; 85379; 93005; J7620

== ENCOUNTER 2023-04-11 12:48 | Outpatient (CLI) | payer BC | END 2023-04-11 12:49 | disposition home or self-care (01) | LOC: BICRAD 12:48 | PROVIDERS: ATTEND Nurse Practitioner Family | DX: J10.1 Influenza due to other identified influenza virus with other respiratory manifestations (principal) | CPT/HCPCS: 71046 ==

== ENCOUNTER 2023-04-18 13:08 | Emergency (ER) | payer BC ==
[2023-04-18 15:39] LABS: #Eosinphils 0.2 thou/uL (0.0-0.7); #Monocytes 0.7 thou/uL (0.11-0.59); #Neutrophils 4.3 thou/uL (1.40-6.50); %Basophils 0.3 % (0.0-1.0); %Eosinophils 2.2 % (0.0-10.0); %Lymphocytes 29.4 % (21.0-51.0); %Monocytes 8.9 % (0.0-10.0); %Neutrophils 58.9 % (42.0-75.0); Hematocrit 44.7 % (36.0-47.0); Hemoglobin 14.8 g/dL (12.0-16.0); Mean Corpuscular HGB CONC 33.1 g/dL (32.0-36.0); Mean Corpuscular Hemoglobin 30.6 pg (27.0-31.0); Mean Corpuscular Volume 92.5 fl (78.0-98.0); Mean Platelet Volume 10.7 fL (7.4-10.4); Platelet Count 240 10x3/uL (130-400); RBC Distribution Width 13.2 % (11.5-14.5); Red Blood Cell (RBC) Count 4.83 mill/uL (4.20-5.40); White Blood Cell (WBC) Count 7.3 10x3/uL (4.8-10.8)
[2023-04-18] MEDS ORDERED: methylPREDNISolone Sod Succ/PF 125 MG/2 ML VIAL ONE (15:43)
[2023-04-18] MEDS ORDERED: Ipratropium/Albuterol 3 ML NEB ONE ×2 (15:43→17:48)
[2023-04-18 15:57] LABS: ALT (SGPT) 31 U/L (8-55); AST (SGOT) 43 U/L (5-34); Albumin 3.8 g/dL (3.5-5.0); Alkaline Phosphatase 75 U/L (40-110); Anion Gap 10 mmol/L (10-20); BUN (Urea Nitrogen) 10 mg/dL (9.8-20.1); Bilirubin, Total 2.4 mg/dL (0.2-1.2); Calc. Creatinine Clearance 0 mL/min (70-130); Calcium 9.6 mg/dL (7.8-10.44); Carbon Dioxide 29 mmol/L (22-29); Chloride 105 mmol/L (98-107); Estimated GFR 81; Globulin 2.7 g/dL (2.4-3.5); Glucose 119 mg/dL (70-105); Lipase 20 U/L (8-78); Magnesium 1.8 mg/dL (1.6-2.6); Potassium 4.3 mmol/L (3.5-5.1); Protein, Total 6.5 g/dL (6.0-8.3); Sodium 140 mmol/L (136-145)
[2023-04-18 16:04] LABS: Troponin I Less than 0.010 ng/mL (< 0.028)
[2023-04-18] MEDS ORDERED: guaiFENesin ER 600 MG TAB ONE (16:12)
[2023-04-18] MEDS ORDERED: Azithromycin 500 MG VIAL ONE (16:13)
[2023-04-18] MEDS ORDERED: Azithromycin 250 MG TAB ONE (16:23)
== END 2023-04-18 18:52 | disposition home or self-care (01) ==
LOC: ERS 13:08
DX: J20.9 Acute bronchitis, unspecified (principal); I10 Essential (primary) hypertension; Z87.891 Personal history of nicotine dependence; Z79.82 Long term (current) use of aspirin; Z79.899 Other long term (current) drug therapy
CPT/HCPCS: 36415; 71046; 80053; 83690; 83735; 83880; 84484; 85025; 93005; 96374; J0456; J2930; J7620

== ENCOUNTER 2023-11-24 12:51 | Outpatient (CLI) | payer BC | END 2023-11-24 12:52 | disposition home or self-care (01) | LOC: CT 12:51 | PROVIDERS: ATTEND Internal Medicine Gastroenterology | DX: R17 Unspecified jaundice (principal); K80.20 Calculus of gallbladder without cholecystitis without obstruction; E66.01 Morbid (severe) obesity due to excess calories; K76.0 Fatty (change of) liver, not elsewhere classified; R16.0 Hepatomegaly, not elsewhere classified; I86.8 Varicose veins of other specified sites; K76.6 Portal hypertension; Z98.84 Bariatric surgery status; Z86.19 Personal history of other infectious and parasitic diseases; Z90.49 Acquired absence of other specified parts of digestive tract | CPT/HCPCS: 74170; 82565 ==

== ENCOUNTER 2024-02-09 14:04 | Outpatient (CLI) | payer BC | END 2024-02-09 14:05 | disposition home or self-care (01) | LOC: MRI 14:04 | PROVIDERS: ATTEND Family Medicine | DX: R41.0 Disorientation, unspecified (principal) | CPT/HCPCS: 70553; 76376 ==

== ENCOUNTER 2024-02-24 12:47 | Observation (INO) | payer BC ==
[2024-02-24 13:19] LABS: #Basophils 0.03 10x3/uL (0.0-0.2); %Basophils 0.4 % (0.0-1.0); %Eosinophils 2.2 % (0.0-10.0); %Lymphocytes 36.6 % (21.0-51.0); %Monocytes 10.4 % (0.0-10.0); %Neutrophils 50.3 % (42.0-75.0); Hematocrit 39.5 % (36.0-47.0); Hemoglobin 13.5 g/dL (12.0-16.0); Mean Corpuscular HGB CONC 34.2 g/dL (32.0-36.0); Mean Corpuscular Hemoglobin 33.1 pg (27.0-31.0); Mean Corpuscular Volume 96.8 fL (78.0-98.0); Mean Platelet Volume 11.1 fL (7.4-10.4); Platelet Count 170 10x3/uL (130-400); RBC Distribution Width 13.8 % (11.5-14.5); Red Blood Cell (RBC) Count 4.08 mill/uL (4.20-5.40)
[2024-02-24 13:46] LABS: ALT (SGPT) 48 U/L (8-55); AST (SGOT) 49 U/L (5-34); Albumin 3.4 g/dL (3.5-5.0); Alkaline Phosphatase 107 U/L (40-110); Anion Gap 14 mmol/L (10-20); BUN (Urea Nitrogen) 15 mg/dL (9.8-20.1); Bilirubin, Total 1.2 mg/dL (0.2-1.2); Calc. Creatinine Clearance 0 mL/min (70-130); Calcium 9.3 mg/dL (7.8-10.44); Carbon Dioxide 24 mmol/L (22-29); Chloride 107 mmol/L (98-107); Estimated GFR 99; Globulin 2.9 g/dL (2.4-3.5); Glucose 90 mg/dL (70-105); Potassium 4.4 mmol/L (3.5-5.1); Protein, Total 6.3 g/dL (6.0-8.3); Sodium 141 mmol/L (136-145)
[2024-02-24 13:50] LABS: Troponin I Less than 0.010 ng/mL (< 0.028)
[2024-02-24 17:09] LABS: Troponin I Less than 0.010 ng/mL (< 0.028)
[2024-02-24 20:00] VITALS: BMI 35.9
[2024-02-24] MEDS ORDERED: Ondansetron PF 4 MG/2 ML Vial IVP PRN (20:00)
[2024-02-24] MEDS: Ondansetron ODT 4 MG TAB SL PRN (20:27)
[2024-02-24] MEDS ORDERED: Nitroglycerin 0.4 MG TAB (25 Tab Bottle) SL PRN (20:42)
[2024-02-24 21:42] LABS: Troponin I Less than 0.010 ng/mL (< 0.028)
[2024-02-25] MEDS: Acetaminophen 325 MG TAB PO PRN ×2 (00:18→12:22)
[2024-02-25] MEDS ORDERED: Albuterol 200 PUFF (6.7GM INHALER) INH PRN (08:37)
[2024-02-25] MEDS ORDERED: FLU (Fluarix Triv) TS24-25(6MOS UP)/PF 45 MCG/0.5 ML Syringe IM ONE (09:00)
[2024-02-25] MEDS ORDERED: LACTULOSE 10 GM/15 ML PO SCH (09:00)
[2024-02-25] MEDS ORDERED: Non-Formulary Item 1 EACH (Spironolactone [Spironolactone] 50 MG Tablet) PO SCH (09:00)
[2024-02-25] MEDS ORDERED: Non-Formulary Item 1 EACH (Omeprazole [Omeprazole] 20 MG Capsule.Dr) PO SCH (09:00)
[2024-02-25] MEDS ORDERED: Regadenoson 0.4 MG/5 ML SYRINGE ONE (10:15)
[2024-02-25 12:20] VITALS: BP 126/74; TEMP 97.9
[2024-02-25] MEDS: Aspirin Chewable 81 MG TAB PO SCH (12:23)
[2024-02-25] MEDS: Pantoprazole DR 40 MG TAB PO SCH (12:24)
[2024-02-25] MEDS: Spironolactone 25 MG TAB PO SCH (12:24)
[2024-02-25] MEDS: Lactulose 20 GM (30 mL) UDCUP PO SCH (12:28)
[2024-02-25] MEDS: buPROPion 75 MG TAB PO SCH (12:29)
[2024-02-25] MEDS ORDERED: HYDROcodone/Acetaminophen 10/325 mg Tablet PO SCH (13:30)
[2024-02-25] MEDS ORDERED: Montelukast Sodium 10 mg Tablet PO SCH (21:00)
== END 2024-02-25 14:45 | disposition home or self-care (01) ==
LOC: ERS 12:47 → ERHOLD 16:28 → 2NO 19:43
PROVIDERS: ADMIT Internal Medicine; ATTEND Internal Medicine
DX: R07.89 Other chest pain (principal); I10 Essential (primary) hypertension; J45.909 Unspecified asthma, uncomplicated; M79.7 Fibromyalgia; M06.9 Rheumatoid arthritis, unspecified; F41.9 Anxiety disorder, unspecified; F32.A Depression, unspecified; Z98.51 Tubal ligation status; Z90.49 Acquired absence of other specified parts of digestive tract; Z87.891 Personal history of nicotine dependence; Z88.8 Allergy status to other drugs, medicaments and biological substances; Z79.51 Long term (current) use of inhaled steroids; Z79.899 Other long term (current) drug therapy
CPT/HCPCS: 36415; 71045; 78452; 80053; 84484; 85025; 93005; 93017; 96374; A9502; G0378; J2785; Q0162

== ENCOUNTER 2024-03-27 16:36 | Emergency (ER) | payer BC ==
[2024-03-27 18:25] LABS: #Basophils 0.04 10x3/uL (0.0-0.2); %Basophils 0.5 % (0.0-1.0); %Eosinophils 3.1 % (0.0-10.0); %Lymphocytes 43.3 % (21.0-51.0); %Monocytes 9.4 % (0.0-10.0); %Neutrophils 43.6 % (42.0-75.0); Hemoglobin 13.2 g/dL (12.0-16.0); Mean Corpuscular Hemoglobin 32.7 pg (27.0-31.0); Mean Platelet Volume 11.5 fL (7.4-10.4); Platelet Count 176 10x3/uL (130-400); RBC Distribution Width 14.2 % (11.5-14.5); Red Blood Cell (RBC) Count 4.04 mill/uL (4.20-5.40)
[2024-03-27 18:38] LABS: ALT (SGPT) 44 U/L (Less than 34); AST (SGOT) 64 U/L (11-34); Albumin 3.5 g/dL (3.1-4.5); Alkaline Phosphatase 118 U/L (40-110); Anion Gap 12 mmol/L (10-20); BUN (Urea Nitrogen) 16 mg/dL (9.8-20.1); Bilirubin, Total 0.8 mg/dL (0.3-1.2); Calc. Creatinine Clearance 0 mL/min (70-130); Calcium 9.3 mg/dL (7.8-10.44); Carbon Dioxide 26 mmol/L (22-29); Chloride 109 mmol/L (98-107); Estimated GFR 99; Glucose 88 mg/dL (70-105); Potassium 5.2 mmol/L (3.5-5.1); Protein, Total 6.5 g/dL (6.0-8.3); Sodium 142 mmol/L (136-145)
[2024-03-27 18:45] LABS: Troponin I Less than 0.010 ng/mL (< 0.028)
[2024-03-27 22:13] LABS: Lipase 71 U/L (8-78); Magnesium 1.9 mg/dL (1.6-2.6)
[2024-03-27] MEDS ORDERED: Aspirin Chewable 81 MG TAB ONE (22:20)
[2024-03-27 22:45] LABS: Troponin I 0.014 ng/mL (< 0.028)
== END 2024-03-27 23:29 | disposition home or self-care (01) ==
LOC: ERS 16:36
DX: R07.89 Other chest pain (principal); I10 Essential (primary) hypertension; Z87.891 Personal history of nicotine dependence
CPT/HCPCS: 36415; 71045; 80053; 83690; 83735; 83880; 84484; 85025; 93005; 94760

== ENCOUNTER 2024-09-27 10:31 | Outpatient (CLI) | payer BC ==
[2024-09-27 13:59] LABS: #Basophils 0.05 10x3/uL (0.0-0.2); #Eosinophils 0.19 10x3/uL (0.0-0.7); #Monocytes 0.67 10x3/uL (0.11-0.59); #Neutrophils 2.43 10x3/uL (1.40-6.50); %Basophils 0.8 % (0.0-1.0); %Eosinophils 3.1 % (0.0-10.0); %Lymphocytes 44.9 % (21.0-51.0); %Monocytes 11.0 % (0.0-10.0); %Neutrophils 40.0 % (42.0-75.0); Hematocrit 39.6 % (36.0-47.0); Hemoglobin 12.8 g/dL (12.0-16.0); Mean Corpuscular Hemoglobin 32.5 pg (27.0-31.0); Mean Corpuscular Volume 100.5 fL (78.0-98.0); Platelet Count 183 10x3/uL (130-400); Red Blood Cell (RBC) Count 3.94 mill/uL (4.20-5.40); White Blood Cell (WBC) Count 6.08 10x3/uL (4.8-10.8)
[2024-09-27 14:26] LABS: Anion Gap 12 mmol/L (10-20); BUN (Urea Nitrogen) 15 mg/dL (9.8-20.1); Calc. Creatinine Clearance 0 mL/min (70-130); Calcium 8.5 mg/dL (7.8-10.44); Carbon Dioxide 27 mmol/L (23-31); Chloride 107 mmol/L (98-107); Glucose 66 mg/dL (80-115); INR-International Normal Ratio 1.2; Potassium 4.7 mmol/L (3.5-5.1); Prothrombin Time 15.1 sec (12.0-14.7); Sodium 141 mmol/L (136-145)
== END 2024-09-27 10:32 | disposition home or self-care (01) ==
LOC: LABBT 10:31
PROVIDERS: ATTEND Orthopaedic Surgery
DX: Z01.818 Encounter for other preprocedural examination (principal); M17.12 Unilateral primary osteoarthritis, left knee
CPT/HCPCS: 80048; 85025; 85610; 87081

== ENCOUNTER 2024-09-28 13:37 | Outpatient (CLI) | payer BC | END 2024-09-28 13:38 | disposition home or self-care (01) | LOC: CT 13:37 | PROVIDERS: ATTEND Orthopaedic Surgery | DX: M17.12 Unilateral primary osteoarthritis, left knee (principal) ==

== ENCOUNTER 2024-10-02 06:39 | Inpatient (IN) | payer BC ==
[2024-09-27 10:50] VITALS: BMI 30.7
[2024-10-02] MEDS ORDERED: Tranexamic Acid 1,000 MG/10 ML VIAL ONE (07:32)
[2024-10-02] MEDS ORDERED: Vancomycin 1 GM/200 ML (FROZEN) BAG ONE (07:33)
[2024-10-02] MEDS ORDERED: Ropivacaine 0.5% HCl/PF (150 MG/30 ML VIAL) ONE (07:37)
[2024-10-02] MEDS ORDERED: CEFAZOLIN 2 GM VIAL ONE (08:35)
[2024-10-02] MEDS ORDERED: Ondansetron PF 4 MG/2 ML Vial IVP PRN ×2 (08:45→12:45)
[2024-10-02] MEDS ORDERED: Ropivacaine 0.2% 550 ML 550 ML NERVE BLCK SCH (08:45)
[2024-10-02] MEDS ORDERED: PROPOFOL 20 ML ONE (09:01)
[2024-10-02] MEDS ORDERED: fentaNYL PF 100 MCG/2 ML SYRINGE ONE (09:01)
[2024-10-02] MEDS ORDERED: PHENYLEPHRINE-NS 100 MCG/ML 10 ML SYRINGE ONE (09:59)
[2024-10-02] MEDS ORDERED: Ondansetron PF 4 MG/2 ML Vial ONE ×2 (10:34→12:00)
[2024-10-02] MEDS ORDERED: Non-Formulary Item 1 EACH (Omeprazole [Omeprazole] 20 MG Capsule.Dr) PO SCH (12:45)
[2024-10-02] MEDS ORDERED: Non-Formulary Item 1 EACH (Spironolactone [Spironolactone] 50 MG Tablet) PO SCH (12:45)
[2024-10-02] MEDS ORDERED: Albuterol 200 PUFF (6.7GM INHALER) INH PRN (12:45)
[2024-10-02] MEDS ORDERED: Non-Formulary Item 1 EACH (Budesonide-Formoterol [Symbicort 160-4.5] 160 MG/4.5 MG Aer) INH SCH (12:45)
[2024-10-02] MEDS ORDERED: diphenhydrAMINE 25 MG CAP PO PRN (12:45)
[2024-10-02] MEDS ORDERED: Non-Formulary Item 1 EACH (Cholecalciferol (Vitamin D3) [Vitamin D3] 50 MCG Capsule) PO SCH (12:45)
[2024-10-02] MEDS ORDERED: Ipratropium Bromide 0.03% Nasal Inhaler 30 ml Bottle EA NARE PRN ×2 (12:45→13:43)
[2024-10-02] MEDS ORDERED: ALPRAZolam 0.25 MG TAB PO PRN (12:45)
[2024-10-02] MEDS ORDERED: Non-Formulary Item 1 EACH (Cyclobenzaprine Hcl [Cyclobenzaprine Hcl] 5 MG Tablet) PO PRN (12:45)
[2024-10-02] MEDS ORDERED: Cyclobenzaprine 10 MG TAB PO PRN (13:31)
[2024-10-02] MEDS: Gabapentin 300 MG CAP PO SCH (14:28)
[2024-10-02] MEDS: Multivitamin W/ Minerals 1 TAB PO SCH (14:28)
[2024-10-02] MEDS: Lactulose 20 GM (30 mL) UDCUP PO SCH (14:29)
[2024-10-02] MEDS: [UNRECOGNIZED DRUG - OTHER] PO SCH (14:43)
[2024-10-02] MEDS: MULTIVIT MIN PO SCH (14:43)
[2024-10-02] MEDS: IRON PO SCH (14:43)
[2024-10-02] MEDS: FOLIC ACID PO SCH (14:43)
[2024-10-02] MEDS: Ketorolac Tromethamine 30 MG (1 mL) VIAL IVP SCH (14:43)
[2024-10-02] MEDS: NYSTATIN 1000000 UNIT TOP SCH (14:44)
[2024-10-02] MEDS: Mometasone 200 MCG/Formoterol 5 MCG 120 PUFF INHALER INH SCH (18:26)
[2024-10-02] MEDS: Aspirin 81 mg Enteric Coated Tablet PO SCH (20:49)
[2024-10-02] MEDS: Senokot S 8.6-50 MG TAB PO SCH (20:49)
[2024-10-02] MEDS: Ferrous Gluconate 324 MG TAB PO SCH (20:49)
[2024-10-03 05:07] LABS: Hematocrit 30.9 % (36.0-47.0); Hemoglobin 10.0 g/dL (12.0-16.0); Mean Corpuscular Hemoglobin 31.7 pg (27.0-31.0); Mean Corpuscular Volume 98.1 fL (78.0-98.0); Platelet Count 132 10x3/uL (130-400); Red Blood Cell (RBC) Count 3.15 mill/uL (4.20-5.40); White Blood Cell (WBC) Count 7.75 10x3/uL (4.8-10.8)
[2024-10-03] MEDS: Acetaminophen 325 MG TAB PO PRN (05:35)
[2024-10-03] MEDS: Spironolactone 25 MG TAB PO SCH (07:31)
[2024-10-03] MEDS: Nystatin Powder 15 GM BOT TOP SCH (07:33)
[2024-10-03] MEDS: Pantoprazole 40 MG DR.TAB PO SCH (08:37)
[2024-10-03] MEDS: Calcium Carbonate 600 MG + Vit D TAB PO SCH (08:37)
[2024-10-03] MEDS: Cholecalciferol 1,000 UNITS (25 MCG) TAB PO SCH (08:37)
[2024-10-03] MEDS: HYDROcodone/Acetaminophen 10/325 mg Tablet PO PRN ×2 (08:44→14:37)
[2024-10-04 04:37] LABS: Hematocrit 30.4 % (36.0-47.0); Hemoglobin 9.8 g/dL (12.0-16.0); Mean Corpuscular Hemoglobin 32.3 pg (27.0-31.0); Mean Corpuscular Volume 100.3 fL (78.0-98.0); Platelet Count 121 10x3/uL (130-400); Red Blood Cell (RBC) Count 3.03 mill/uL (4.20-5.40); White Blood Cell (WBC) Count 8.14 10x3/uL (4.8-10.8)
[2024-10-04 12:50] VITALS: BP 113/75; TEMP 98.6
== END 2024-10-04 13:55 | disposition home or self-care (01) | DRG 470 ==
LOC: SDC 06:39 → SURG B 12:40 → SDC 15:14 → OBSVTOIN 10-03 11:30
PROVIDERS: ADMIT Orthopaedic Surgery; ATTEND Orthopaedic Surgery
PROC: 0SRD0J9 Replacement of Left Knee Joint with Synthetic Substitute, Cemented, Open Approach (ICD-10-PCS; principal; 2024-10-02)
PROC: 0QUF0JZ Supplement Left Patella with Synthetic Substitute, Open Approach (ICD-10-PCS; 2024-10-02)
DX: M17.12 Unilateral primary osteoarthritis, left knee (principal); F41.9 Anxiety disorder, unspecified; K21.9 Gastro-esophageal reflux disease without esophagitis; I34.0 Nonrheumatic mitral (valve) insufficiency; K76.0 Fatty (change of) liver, not elsewhere classified; K74.60 Unspecified cirrhosis of liver; I10 Essential (primary) hypertension; Z88.8 Allergy status to other drugs, medicaments and biological substances; Z88.6 Allergy status to analgesic agent; Z98.890 Other specified postprocedural states; Z98.51 Tubal ligation status; Z90.49 Acquired absence of other specified parts of digestive tract; Z79.82 Long term (current) use of aspirin; Z97.3 Presence of spectacles and contact lenses; Z98.84 Bariatric surgery status; Z87.891 Personal history of nicotine dependence
CPT/HCPCS: 36415; 85027; A4306; C1713; C1776; C1889; J0169; J0665; J1100; J1885; J2250; J2405; J2704; J2795; J3010; J3373; J7030

== ENCOUNTER 2025-01-07 15:11 | Outpatient (CLI) | payer BC ==
[~2025-01-07 15:11] MED LIST changes: +GASTROGRAFIN 30 ML BOT ONE; +Iopamidol 370 76% 100 ML VIAL ONE; -Iopamidol-370 76% 500 ML 1 ML ONE
[2025-01-07 15:47] LABS: Estimated GFR - POC 64.0
== END 2025-01-07 15:12 | disposition home or self-care (01) ==
LOC: CT 15:11
PROVIDERS: ATTEND Physician Assistant Medical
DX: K74.60 Unspecified cirrhosis of liver (principal); K59.09 Other constipation; F11.90 Opioid use, unspecified, uncomplicated; R60.0 Localized edema; Z98.84 Bariatric surgery status; Z90.49 Acquired absence of other specified parts of digestive tract
CPT/HCPCS: 36415; 74170; 82565; Q9963; Q9967

== ENCOUNTER 2025-01-10 07:45 | Day surgery (SDC) | payer BC ==
[2025-01-09 14:30] VITALS: BMI 30.4
[2025-01-10 09:17] LABS: #Basophils 0.05 10x3/uL (0.0-0.2); #Eosinophils 0.40 10x3/uL (0.0-0.7); #Monocytes 0.53 10x3/uL (0.11-0.59); #Neutrophils 2.34 10x3/uL (1.40-6.50); %Basophils 0.8 % (0.0-1.0); %Eosinophils 6.7 % (0.0-10.0); %Lymphocytes 44.1 % (21.0-51.0); %Monocytes 8.9 % (0.0-10.0); %Neutrophils 39.3 % (42.0-75.0); Hematocrit 42.0 % (36.0-47.0); Hemoglobin 13.3 g/dL (12.0-16.0); Mean Corpuscular Hemoglobin 30.8 pg (27.0-31.0); Mean Corpuscular Volume 97.2 fL (78.0-98.0); Platelet Count 198 10x3/uL (130-400); Red Blood Cell (RBC) Count 4.32 mill/uL (4.20-5.40); White Blood Cell (WBC) Count 5.96 10x3/uL (4.8-10.8)
[2025-01-10] MEDS ORDERED: Lidocaine 1% PF 5 ML VIAL ONE (10:25)
[2025-01-10] MEDS ORDERED: fentaNYL PF 100 MCG/2 ML SYRINGE ONE (10:25)
[2025-01-10] MEDS ORDERED: Bupivacaine 0.25% HCL 30 ML VIAL ONE (10:29)
[2025-01-10] MEDS ORDERED: CEFAZOLIN 2 GM VIAL ONE (10:29)
[2025-01-10] MEDS ORDERED: PROPOFOL 200 MG/20 ML VIAL ONE (10:46)
[2025-01-10] MEDS ORDERED: Ondansetron PF 4 MG/2 ML Vial ONE (10:46)
[2025-01-10] MEDS ORDERED: PHENYLEPHRINE-NS 100 MCG/ML 10 ML SYRINGE ONE (10:55)
== END 2025-01-10 13:45 | disposition home or self-care (01) ==
LOC: SDC 07:45
PROVIDERS: ATTEND Orthopaedic Surgery
PROC: 01N54ZZ Release Median Nerve, Percutaneous Endoscopic Approach (ICD-10-PCS; principal; 2025-01-10)
DX: G56.01 Carpal tunnel syndrome, right upper limb (principal); Z90.49 Acquired absence of other specified parts of digestive tract; Z88.8 Allergy status to other drugs, medicaments and biological substances
CPT/HCPCS: 85025; A6223; J0665; J1100; J2250; J2405; J2704

== ENCOUNTER 2025-01-31 08:03 | Day surgery (SDC) | payer BC ==
[2025-01-30 09:53] VITALS: BMI 32.3
[2025-01-31] MEDS ORDERED: Ondansetron PF 4 MG/2 ML Vial ONE ×2 (08:58→12:23)
[2025-01-31] MEDS ORDERED: fentaNYL PF 100 MCG/2 ML SYRINGE ONE ×2 (08:58→11:21)
[2025-01-31] MEDS ORDERED: Lidocaine 1% PF 5 ML VIAL ONE (08:58)
[2025-01-31 09:12] LABS: #Basophils 0.03 10x3/uL (0.0-0.2); #Eosinophils 0.39 10x3/uL (0.0-0.7); #Monocytes 0.61 10x3/uL (0.11-0.59); #Neutrophils 1.94 10x3/uL (1.40-6.50); %Basophils 0.5 % (0.0-1.0); %Eosinophils 7.1 % (0.0-10.0); %Lymphocytes 45.4 % (21.0-51.0); %Monocytes 11.2 % (0.0-10.0); %Neutrophils 35.6 % (42.0-75.0); Hematocrit 37.1 % (36.0-47.0); Hemoglobin 11.9 g/dL (12.0-16.0); Mean Corpuscular Hemoglobin 31.2 pg (27.0-31.0); Mean Corpuscular Volume 97.4 fL (78.0-98.0); Platelet Count 175 10x3/uL (130-400); Red Blood Cell (RBC) Count 3.81 mill/uL (4.20-5.40); White Blood Cell (WBC) Count 5.46 10x3/uL (4.8-10.8)
[2025-01-31] MEDS ORDERED: PROPOFOL 200 MG/20 ML VIAL ONE (09:45)
== END 2025-01-31 13:38 | disposition home or self-care (01) ==
LOC: SDC 08:03
PROVIDERS: ATTEND Orthopaedic Surgery
PROC: 01N54ZZ Release Median Nerve, Percutaneous Endoscopic Approach (ICD-10-PCS; principal; 2025-01-31)
DX: G56.02 Carpal tunnel syndrome, left upper limb (principal); I10 Essential (primary) hypertension; J45.909 Unspecified asthma, uncomplicated; Z79.51 Long term (current) use of inhaled steroids; Z79.899 Other long term (current) drug therapy; Z88.7 Allergy status to serum and vaccine; Z88.5 Allergy status to narcotic agent; Z88.8 Allergy status to other drugs, medicaments and biological substances; Z79.82 Long term (current) use of aspirin; Z87.891 Personal history of nicotine dependence
CPT/HCPCS: 85025; A6223; J1100; J2405; J2704; J3010